=== PATIENT | male | born 1975 | race Caucasian/White ===

== ENCOUNTER → 2020-11-09 | Outpatient (CLI) | payer OTHER | LOC: MHCPAIN 10:05 | DX: M47.814 Spondylosis without myelopathy or radiculopathy, thoracic region (principal); M54.6 Pain in thoracic spine; M79.18 Myalgia, other site; M54.2 Cervicalgia; G89.29 Other chronic pain | CPT/HCPCS: G0463 ==

== ENCOUNTER → 2020-11-16 | Outpatient (CLI) | payer OTHER | LOC: MHCPAIN 09:45 | DX: M54.6 Pain in thoracic spine (principal); M79.18 Myalgia, other site | CPT/HCPCS: J1040 ==